=== PATIENT | female | born 1960 | race Caucasian/White ===

== ENCOUNTER 2018-03-09 10:53 | Emergency (ER) | payer OTHER ==
[~2018-03-09] VITALS: Ht 160 cm; Wt 77.3 kg
[~2018-03-09 10:53] MED LIST: ASPIRIN81 M2 PO; ATORVASTATIN CA10 MG PO; GLUCOPHAGE500 MG PO; HEARTBURN RELIE75 MG PO; HUMALOG100 UNIT/1 SC; LANTUS 10100 UNITS/ SC; LISINOPRIL40 MG PO; NEURONTIN300 MG PO; PROTONIX40 MG PO
[2018-03-09 11:45] LABS: HEMATOCRIT 34.6 % (36.0-46.0); HEMOGLOBIN 11.3 G/DL (11.9-15.5); MCH 27.8 PG (29.0-34.0); MCHC 32.7 G/DL (30.0-36.0); PLATELET COUNT 249 K/uL (156-360); RBC DIS.WIDTH-SD 43.6 % (39-53); RED BLOOD COUNT 4.07 M/uL (3.80-5.20); WHITE BLOOD COUNT 5.7 K/uL (4.1-10.2)
[2018-03-09 11:48] LABS: APPEARANCE CLOUDY ((CLEAR)); BILIRUBIN SMALL; BLOOD NEGATIVE; COLOR AMBER ((YELLOW)); GLUCOSE (STRIP) >=500; KETONES 5; LEUKOCYTES MODERATE; NITRITE NEGATIVE; PROTEIN (STRIP) 30; SPECIFIC GRAVITY 1.023 (1.000-1.030)
[2018-03-09 11:51] LABS: BACTERIA RARE /HPF; CALCIUM OXALATE CRYSTALS 1+ /HPF; EPITHELIAL CELLS 2+ /HPF; HYALINE CASTS TNTC /LPF; MUCUS 1+ /LPF; RED BLOOD CELLS 0-5 /HPF (0-5); UCUL ADDED? YES; WHITE BLOOD CELLS 15-20 /HPF (0-5)
[2018-03-09 11:53] LABS: ALBUMIN 4.1 g/dL (3.2-4.8); CHLORIDE 98 mEq/L (99-109); POTASSIUM 4.3 mEq/L (3.7-5.4); SODIUM 133 mEq/L (136-147)
[2018-03-09 11:55] LABS: GLUCOSE 355 mg/dL (70-99); TOTAL PROTEIN 7.9 g/dL (6.4-8.3)
[2018-03-09 11:57] LABS: TOTAL BILIRUBIN 0.7 mg/dL (0.0-1.0)
[2018-03-09 11:59] LABS: ALKALINE PHOSPHATASE 124 IU/L (3-129); CREATININE 1.8 mg/dL (0.6-1.3); GFR ESTIMATE (CALCULATED) 31 mL/min/
[2018-03-09 12:00] LABS: UREA NITROGEN (BUN) 26 mg/dL (9-23)
[2018-03-09 12:01] LABS: AST (GOT) 26 IU/L (2-34)
[2018-03-09 12:02] LABS: ALT (GPT) 24 IU/L (3-49)
[2018-03-09] MEDS ORDERED: MIRALAX255 GM PO (14:12)
[2018-03-09] MEDS ORDERED: BACTRIM,SEPT1 TABLET PO (14:24)
[2018-03-09 14:32] VITALS: BP 100/72
== END 2018-03-09 14:33 | disposition home or self-care (01) ==
LOC: EME 10:53
DX: N39.0 Urinary tract infection, site not specified (principal); R10.11 Right upper quadrant pain; K21.9 Gastro-esophageal reflux disease without esophagitis; I10 Essential (primary) hypertension; E78.5 Hyperlipidemia, unspecified; E11.9 Type 2 diabetes mellitus without complications; K22.70 Barrett's esophagus without dysplasia; Z90.49 Acquired absence of other specified parts of digestive tract; Z87.891 Personal history of nicotine dependence; Z79.4 Long term (current) use of insulin; Z79.82 Long term (current) use of aspirin; Z88.5 Allergy status to narcotic agent
CPT/HCPCS: 74176; 80053; 81003; 85027; 87077; 87086; 87186; 99281; 99285; J7030